=== PATIENT | male | born 1960 | race American Indian/Alaskan Native ===

== ENCOUNTER 2021-11-30 19:44 | Emergency (ER) | payer MEDICAID ==
--- NOTE | 2021-11-30 23:54 | Cat Scan Report ---
CT ABDOMEN AND PELVIS WITHOUT CONTRAST INDICATION / CLINICAL INFORMATION: Patient complains of RIGHT sided flank pain. TECHNIQUE: Axial CT images were obtained through the abdomen and pelvis without IV contrast. All CT scans at this location are performed using CT dose reduction for ALARA by means of automated exposure control. COMPARISON: None available. FINDINGS: LOWER CHEST: Metallic object posterior lateral left rib cage. The lower chest demonstrates no acute f indings. LIVER: No significant abnormality. GALLBLADDER: No significant abnormality. BILE DUCTS: No significant abnormality. SPLEEN: No significant abnormality. PANCREAS: No significant abnormality. ADRENALS: No significant abnormality. RIGHT KIDNEY / URETER: No significant abnormality. LEFT KIDNEY / URETER: No significant abnormality. STOMACH / DUODENUM / SMALL BOWEL: No significant abnormality. COLON: No significant abnormality. APPENDIX: No significant abnormality. PERITONEUM: No free air or free fluid are present within the abdomen or pelvis. LYMPH NODES: No significant adenopathy. AORTA / ARTERIES: No significant abnormality. IVC / VEINS: No significant abnormality. URINARY BLADDER: No significant abnormality. REPRODUCTIVE ORGANS: No significant abnormality. ADDITIONAL ABDOMINAL/PELVIC FINDINGS: None. SKELETAL SYSTEM: No significant abnormality. IMPRESSION: 1. No acute findings. Metallic foreign body posterior lateral left rib cage. Signer Name: Harley James II, MD Signed: 11/30/2021 11:44 PM Workstation Name: [id number]
[2021-12-01 00:19] LABS: Mucus,Urine FEW /HPF
[2021-12-01] MEDS ORDERED: HYDROmorphone 1 MG/1 ML INJ IM ONE (00:20)
[2021-12-01] MEDS ORDERED: KETOROLAC 60 MG/2 ML INJ IM ONE (00:20)
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
[2021-12-01 00:34] LABS: Bilirubin,Urine Negative (Negative); Blood,Urine Small (Negative); Color,Urine Colorless (Yellow)
[2021-12-01 01:55] VITALS: BP 134/63
== END 2021-12-01 02:04 | disposition home or self-care (01) ==
LOC: ED 19:44
DX: R10.9 Unspecified abdominal pain (principal); I10 Essential (primary) hypertension; I21.9 Acute myocardial infarction, unspecified; F03.90 Unspecified dementia, unspecified severity, without behavioral disturbance, psychotic disturbance, mood disturbance, and anxiety; Z98.890 Other specified postprocedural states; F17.200 Nicotine dependence, unspecified, uncomplicated; Z85.46 Personal history of malignant neoplasm of prostate; Z86.73 Personal history of transient ischemic attack (TIA), and cerebral infarction without residual deficits
CPT/HCPCS: 74176; 81001; 96372; 99284; J1170; J1885

== ENCOUNTER 2022-04-05 13:34 | Inpatient (IN) | payer MEDICAID ==
[2022-04-05 15:00] LABS: Basophils # (Auto) 0.1 K/mm3 (0.0-0.1); Basophils % (Auto) 1.6 % (0.0-1.8); Eosinophils # (Auto) 0.1 K/mm3 (0.0-0.4); Eosinophils % (Auto) 1.3 % (0.0-4.3); Hematocrit 46.4 % (35.5-45.6); Hemoglobin 15.6 gm/dl (11.8-15.2); Lymphocytes # (Auto) 1.4 K/mm3 (1.2-5.4); Lymphocytes % (Auto) 23.6 % (13.4-35.0); Mean Corpuscular HGB Conc 34 % (32-34); Mean Corpuscular Volume 87 fl (84-94); Monocytes # (Auto) 0.7 K/mm3 (0.0-0.8); Monocytes % (Auto) 11.4 % (0.0-7.3); Platelet Count 318 K/mm3 (140-440); Red Blood Count 5.33 M/mm3 (3.65-5.03)
[2022-04-05 15:24] LABS: Alanine Aminotransferase 20 units/L (7-56); Albumin 4.2 g/dL (3.9-5); BUN/Creatinine Ratio 15; Blood Urea Nitrogen 20 mg/dL (9-20); Calcium 9.6 mg/dL (8.4-10.2); Hemolysis Index 2
[2022-04-05] MEDS ORDERED: SODIUM CHLORIDE 0.9% 1000 ML 1,000 ML IV ONE (16:06)
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
[2022-04-05 18:31] LABS: Bilirubin,Urine Negative (Negative); Color,Urine Yellow (Yellow)
[2022-04-05 18:32] LABS: Blood,Urine 1+ (Negative)
--- NOTE | 2022-04-05 20:56 | Cat Scan Report ---
CT abdomen pelvis w con INDICATION / CLINICAL INFORMATION: abdominal pain. TECHNIQUE: Axial CT images were obtained through the abdomen and pelvis after IV contrast. All CT sc ans at this location are performed using CT dose reduction for ALARA by means of automated exposure c ontrol. COMPARISON: None available. FINDINGS: Lung bases are clear. The liver is mildly enlarged with suspected steatosis. No focal lesion. Gallbla dder and biliary ducts are unremarkable. Pancreas, spleen, and adrenals demonstrate no significant ab normality. The kidneys enhance symmetrically. No hydronephrosis. Bladder and prostate are unremarkabl e. Stomach is unremarkable. Small bowel and colon demonstrate no evidence of mechanical obstruction or i nflammation. Mild to moderate colonic stool burden. Normal appendix. No free fluid or adenopathy. No free air. Abdominal aorta is normal in caliber. No acute osseous findings. IMPRESSION: No acute findings in the abdomen or pelvis. Signer Name: Mykel High MD Signed: 04/05/2022 8:51 PM Workstation Name: [id number]
[2022-04-05] MEDS ORDERED: MECLIZINE 25 MG TAB PO ONE (22:12)
--- NOTE | 2022-04-05 23:04 | Cat Scan Report ---
CT HEAD WITHOUT CONTRAST INDICATION / CLINICAL INFORMATION: DIZZINESS. TECHNIQUE: CT head was performed without administration of intravenous contrast. All CT scans at this location are performed using CT dose reduction for ALARA by means of automated exposure control. COMPARISON: CT of the abdomen and pelvis with intravenous contrast same date FINDINGS: CEREBRAL HEMISPHERES: Residual contrast present within the vascular system. Generalized atrophy and b ilateral regions of periventricular white matter hypoattenuation compatible with microvascular ischem ia are demonstrated. No midline shift. Basal cisterns patent. HEMORRHAGE: None. CEREBELLUM / BRAINSTEM: No significant abnormality. ORBITS: No significant abnormality. Remote deformity medial wall left orbit. SOFT TISSUES: No significant abnormality. SKULL: No significant abnormality. PARANASAL SINUSES / MASTOID AIR CELLS: Normal as visualized. ADDITIONAL FINDINGS: None. IMPRESSION: 1. Bilateral regions of white matter hypoattenuation compatible with microvascular ischemia. Alternat ively, demyelinating process not entirely excluded. MRI may be useful for further evaluation. 2. Otherwise no evidence of acute intracranial pathology. Signer Name: Harley James II, MD Signed: 04/05/2022 10:59 PM Workstation Name: [id number]
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
[2022-04-06] MEDS ORDERED: ACETAMINOPHEN 325 MG TAB PO PRN (00:52)
[2022-04-06] MEDS ORDERED: MORPHINE 2 MG/1 ML INJ IV PRN (00:52)
[2022-04-06] MEDS ORDERED: DEXTROSE 50% IN WATER (25GM) 50 ML SYRINGE IV PRN (00:52)
[2022-04-06] MEDS ORDERED: PROMETHAZINE 25 MG RECT SUPP PR PRN (00:52)
[2022-04-06] MEDS ORDERED: MORPHINE 4 MG/1 ML INJ IV PRN ×2 (00:52)
[2022-04-06] MEDS ORDERED: ONDANSETRON 4 MG/2 ML INJ IV PRN ×2 (00:52)
[2022-04-06] MEDS ORDERED: METOCLOPRAMIDE 10 MG TAB PO PRN (00:52)
[2022-04-06] MEDS ORDERED: MAGNESIUM HYDROXIDE (MOM) ORAL LIQD UDC PO PRN (00:52)
[2022-04-06 01:23] LABS: INR 0.86 (0.87-1.13)
[2022-04-06 01:24] LABS: Partial Thromboplastin Time 31.6 Sec. (24.2-36.6)
[2022-04-06 01:48] LABS: Thrombin Time 16.9 Sec. (15.1-19.6)
[2022-04-06] MEDS: HEPARIN 5,000 UNIT/1 ML VIAL SUB-Q SCH ×3 (06:01→22:23)
[2022-04-06] MEDS: INSULIN LISPRO 100 UNIT/ML SUB-Q SCH ×4 (08:51→22:23)
[2022-04-06] MEDS: MORPHINE 2 MG/1 ML INJ IV PRN ×2 (08:51→13:00)
[2022-04-06] MEDS: ACETAMINOPHEN 325 MG TAB PO PRN ×2 (08:59→16:52)
[2022-04-06] MEDS: ASPIRIN 325 MG TAB PO SCH (11:46)
--- NOTE | 2022-04-06 11:59 | Progress Note ---
Assessment and Plan Assessment and plan: Patient is 61 years old male with history of hypertension diabetes. Patient stated that he is taking insulin. Patient presented to the ER initially stating that he felt dizzy while he was driving and he checked his blood sugar and it was 451. No focal weakness numbness or tingling sensation. Ataxia R/O esophageal stricture Diabetes mellitus type 2, uncontrolled Hypertension Abdominal pain. 04/06/2022. Patient CT scan of the abdomen pelvis was noted to be negative. Patient did not complain of any further abdominal pain. CT of the brain without contrast was essentially unremarkable. We will follow-up MRI/MRI of brain for further evaluation. Patient has carotid ultrasound and echocardiogram pending. Await barium swallow to r/o esophageal stricture. Consider GI evaluation History Interval history: No new issues overnight Hospitalist Physical - Constitutional Vitals: Temp Pulse Resp BP Pulse Ox 97.5 F L 62 16 143/75 99 04/06/22 11:41 04/06/22 11:41 04/06/22 11:41 04/06/22 11:41 04/06/22 11:41 General appearance: Present: no acute distress, well-nourished - EENT Eyes: Present: PERRL, EOM intact ENT: hearing intact, clear oral mucosa, dentition normal - Neck Neck: Present: supple, normal ROM - Respiratory Respiratory effort: normal Respiratory: bilateral: CTA - Cardiovascular Rhythm: regular Heart Sounds: Present: S1 & S2. Absent: gallop, rub - Extremities Extremities: no ischemia, No edema, Full ROM - Abdominal General gastrointestinal: soft, non-tender, non-distended, normal bowel sounds - Integumentary Integumentary: Present: clear, warm, dry - Neurologic Neurologic: CNII-XII intact, moves all extremities HEART Score - HEART Score Troponin: Troponin T < 0.010 ng/mL (0.00-0.029) 04/06/22 00:30 Results - Labs CBC & Chem 7: 04/05/22 14:35 04/05/22 14:35 Labs: Laboratory Last Values WBC 6.1 K/mm3 (4.5-11.0) 04/05/22 14:35 RBC 5.33 M/mm3 (3.65-5.03) H 04/05/22 14:35 Hgb 15.6 gm/dl (11.8-15.2) H 04/05/22 14:35 Hct 46.4 % (35.5-45.6) H 04/05/22 14:35 MCV 87 fl (84-94) 04/05/22 14:35 MCH 29 pg (28-32) 04/05/22 14:35 MCHC 34 % (32-34) 04/05/22 14:35 RDW 15.0 % (13.2-15.2) 04/05/22 14:35 Plt Count 318 K/mm3 (140-440) 04/05/22 14:35 Lymph % (Auto) 23.6 % (13.4-35.0) 04/05/22 14:35 Starke % (Auto) 11.4 % (0.0-7.3) H 04/05/22 14:35 Eos % (Auto) 1.3 % (0.0-4.3) 04/05/22 14:35 Baso % (Auto) 1.6 % (0.0-1.8) 04/05/22 14:35 Lymph # (Auto) 1.4 K/mm3 (1.2-5.4) 04/05/22 14:35 Starke # (Auto) 0.7 K/mm3 (0.0-0.8) 04/05/22 14:35 Eos # (Auto) 0.1 K/mm3 (0.0-0.4) 04/05/22 14:35 Baso # (Auto) 0.1 K/mm3 (0.0-0.1) 04/05/22 14:35 Seg Neutrophils % 62.1 % (40.0-70.0) 04/05/22 14:35 Seg Neutrophils # 3.8 K/mm3 (1.8-7.7) 04/05/22 14:35 PT 12.6 Sec. (12.2-14.9) 04/06/22 00:30 INR 0.86 (0.87-1.13) L 04/06/22 00:30 APTT 31.6 Sec. (24.2-36.6) 04/06/22 00:30 Thrombin Time 16.9 Sec. (15.1-19.6) 04/06/22 00:30 Sodium 134 mmol/L (137-145) L 04/05/22 14:35 Potassium 4.1 mmol/L (3.6-5.0) 04/05/22 14:35 Chloride 96.9 mmol/L (98-107) L 04/05/22 14:35 Carbon Dioxide 26 mmol/L (22-30) 04/05/22 14:35 Anion Gap 15 mmol/L 04/05/22 14:35 BUN 20 mg/dL (9-20) 04/05/22 14:35 Creatinine 1.3 mg/dL (0.8-1.3) 04/05/22 14:35 Estimated GFR > 60 ml/min 04/05/22 14:35 BUN/Creatinine Ratio 15 % 04/05/22 14:35 Glucose 258 mg/dL (75-100) H 04/05/22 14:35 POC Glucose 166 mg/dL (70-105) H 04/06/22 11:11 Calcium 9.6 mg/dL (8.4-10.2) 04/05/22 14:35 Total Bilirubin 0.60 mg/dL (0.1-1.2) 04/05/22 14:35 AST 24 units/L (5-40) 04/05/22 14:35 ALT 20 units/L (7-56) 04/05/22 14:35 Alkaline Phosphatase 113 units/L (35-129) 04/05/22 14:35 Troponin T < 0.010 ng/mL (0.00-0.029) 04/06/22 00:30 Total Protein 7.8 g/dL (6.3-8.2) 04/05/22 14:35 Albumin 4.2 g/dL (3.9-5) 04/05/22 14:35 Albumin/Globulin Ratio 1.2 % 04/05/22 14:35 Lipase 39 units/L (13-60) 04/05/22 14:35 Urine Color Yellow (Yellow) 04/05/22 17:22 Urine Turbidity Clear (Clear) 04/05/22 17: Urine pH 5.0 (5.0-7.0) 04/05/22 17:22 Ur Specific [place] 1.010 (1.003-1.030) 04/05/22 17:22 Urine Protein 30 mg/dl mg/dL (Negative) 04/05/22 17:22 Urine Glucose (UA) 150 mg/dL (Negative) 04/05/22 17:22 Urine Ketones Negative mg/dL (Negative) 04/05/22 17:22 Urine Blood 1+ (Negative) 04/05/22 17:22 Urine Nitrite Negative (Negative) 04/05/22 17:22 Ur Reducing Substances Not Reportable 04/05/22 17:22 Urine Bilirubin Negative (Negative) 04/05/22 17:22 Urine Ictotest Not Reportable 04/05/22 17:22 Urine Urobilinogen 2.0 mg/dL (<2.0) 04/05/22 17:22 Ur Leukocyte Esterase Negative (Negative) 04/05/22 17:22 Urine WBC (Auto) 1.0 /HPF (0.0-6.0) 04/05/22 17: Urine RBC (Auto) 2.0 /HPF (0.0-6.0) 04/05/22 17:22 U Epithel Cells (Auto) < 1.0 /HPF (0-13.0) 04/05/22 17: Plasma/Serum Alcohol < 0.01 % (0-0.07) 04/05/22 22:44 Jack/IV: Voiding Method Urinal Active Medications - Current Medications Current Medications: Generic Name Dose Route Start Last Admin Trade Name Freq PRN Reason Stop Dose Admin Acetaminophen 650 mg 04/06/22 00:52 04/06/22 08:59 Acetaminophen 325 Mg Tab PO 650 mg Q4H PRN Administration Pain MILD(1-3)/Fever >100.5/HENNING Aspirin 325 mg 04/06/22 10:00 04/06/22 11:46 Aspirin 325 Mg Tab PO 325 mg QDAY STEPH Administration Atorvastatin Calcium 40 mg 04/06/22 22:00 Atorvastatin 40 Mg Tab PO QHS STEPH Bisacodyl 10 mg 04/06/22 00:52 Bisacodyl 10 Mg Rect Supp VT QDAY PRN Constipation Dextrose 50 ml 04/06/22 00:52 Dextrose 50% In Water (25gm) 50 Ml Syringe IV Q30MIN PRN Hypoglycemia Protocol Heparin Sodium (Porcine) 5,000 unit 04/06/22 06:00 04/06/22 06:01 Heparin 5,000 Unit/1 Ml Vial SUB-Q 5,000 unit Q8HR STEPH Administration Insulin Human Lispro 0 unit 04/06/22 07:30 04/06/22 11:46 Insulin Lispro 100 Unit/Ml SUB-Q 2 unit ACHS STEPH Administration Protocol Magnesium Hydroxide 30 ml 04/06/22 00:52 Magnesium Hydroxide (Mom) Oral Liqd Udc PO Q4H PRN Constipation Metoclopramide HCl 10 mg 04/06/22 00:52 Metoclopramide 10 Mg Tab PO Q6H PRN Nausea And Vomiting Morphine Sulfate 2 mg 04/06/22 00:52 Morphine 2 Mg/1 Ml Inj IV Q4H PRN Pain, Moderate (4-6) Morphine Sulfate 4 mg 04/06/22 00:52 Morphine 4 Mg/1 Ml Inj IV Q4H PRN Pain , Severe (7-10) Ondansetron HCl 4 mg 04/06/22 00:52 Ondansetron 4 Mg/2 Ml Inj IV Q8H PRN Nausea And Vomiting Promethazine HCl 25 mg 04/06/22 00:52 Promethazine 25 Mg Rect Supp VT Q6H PRN Nausea And Vomiting Sodium Chloride 10 ml 04/06/22 10:00 04/06/22 11:46 Sodium Chloride 0.9% 10 Ml Flush Syringe IV 10 ml BID STEPH Administration Sodium Chloride 10 ml 04/06/22 00:52 Sodium Chloride 0.9% 10 Ml Flush Syringe IV PRN PRN LINE FLUSH
--- NOTE | 2022-04-06 14:20 | Vascular Lab Report ---
DUPLEX DOPPLER ULTRASOUND CAROTID, BILATERAL INDICATION / CLINICAL INFORMATION: stroke. COMPARISON: None available. FINDINGS: RIGHT CAROTID: Minimal atherosclerotic plaque. - PLAQUE ESTIMATE (%): < 50% - CCA velocity: 95 cm/sec. - ICA peak systolic velocity: 82 cm/sec. - ICA/CCA PSV Ratio: Less than 2. Right Vertebral Artery: Antegrade flow. LEFT CAROTID: Mild atherosclerotic plaque. - PLAQUE ESTIMATE (%): < 50% - CCA velocity: 88 cm/sec. - ICA peak systolic velocity: 89 cm/sec. - ICA/CCA PSV Ratio: Less than 2. Left Vertebral Artery: Antegrade flow. IMPRESSION: 1. Right Internal Carotid Artery: Less than 50% diameter stenosis. 2. Left Internal Carotid Artery: Less than 50% diameter stenosis. Velocity criteria are extrapolated from diameter data as defined by the Society of Radiologists in Ul trasound Consensus Conference, Radiology 2003; 229;340-346. NO STENOSIS (NORMAL) - Plaque = none; ICA PSV < 125 cm/sec; ICA/CCA PSV Ratio < 2.0 <50% STENOSIS - Plaque < 50%; ICA PSV < 125 cm/sec; ICA/CCA PSV Ratio < 2.0 50-69% STENOSIS - Plaque > 50%; ICA PSV = 125-230 cm/sec; ICA/CCA PSV Ratio = 2.0-4.0 >70% BUT <100% STENOSIS - Plaque > 50%; ICA PSV > 230 cm/sec; ICA/CCA PSV Ratio > 4.0 NEAR OCCLUSION - Plaque = visible lumen; ICA PSV = high/low/none; ICA/CCA PSV Ratio = variable TOTAL OCCLUSION - Plaque = no lumen; ICA PSV = none; ICA/CCA PSV Ratio = N/A Scribed by: Torie Pittman RDMS, RVT, RMSKS Scribed: 04/06/2022 12:58 PM I have reviewed the images, agree with this report, and edited this report as needed. Signer Name: Joey Rdz MD Signed: 04/06/2022 2:16 PM Workstation Name: [id number]
[2022-04-06] MEDS: SODIUM CHLORIDE 0.9% 1000 ML 1,000 ML IV SCH ×2 (15:16→22:24)
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
[2022-04-07] MEDS: HEPARIN 5,000 UNIT/1 ML VIAL SUB-Q SCH ×3 (05:09→22:17)
[2022-04-07] MEDS: MORPHINE 2 MG/1 ML INJ IV PRN ×2 (05:09→22:17)
[2022-04-07 06:02] LABS: BUN/Creatinine Ratio 12; Blood Urea Nitrogen 13 mg/dL (9-20); Calcium 9.2 mg/dL (8.4-10.2); Hemolysis Index 4
[2022-04-07 06:17] LABS: Basophils % (Auto) 0.3 % (0.0-1.8); Eosinophils # (Auto) 0.2 K/mm3 (0.0-0.4); Eosinophils % (Auto) 4.3 % (0.0-4.3); Hematocrit 45.9 % (35.5-45.6); Hemoglobin 15.4 gm/dl (11.8-15.2); Lymphocytes # (Auto) 2.1 K/mm3 (1.2-5.4); Lymphocytes % (Auto) 46.9 % (13.4-35.0); Mean Corpuscular HGB Conc 34 % (32-34); Mean Corpuscular Volume 87 fl (84-94); Monocytes # (Auto) 0.5 K/mm3 (0.0-0.8); Monocytes % (Auto) 12.4 % (0.0-7.3); Platelet Count 308 K/mm3 (140-440); Red Blood Count 5.26 M/mm3 (3.65-5.03); Red Cell Distribution Width 15.3 % (13.2-15.2)
[2022-04-07] MEDS: ASPIRIN 325 MG TAB PO SCH (09:19)
[2022-04-07] MEDS: INSULIN LISPRO 100 UNIT/ML SUB-Q SCH ×4 (09:19→22:00)
[2022-04-07] MEDS: ACETAMINOPHEN 325 MG TAB PO PRN (17:08)
[2022-04-08] MEDS: HEPARIN 5,000 UNIT/1 ML VIAL SUB-Q SCH ×2 (07:01→13:21)
--- NOTE | 2022-04-08 07:10 | Progress Note ---
Assessment and Plan Assessment and Plan Assessment: 1CVA 2.Hyperglycemia 3.Hypertension Plan: Admitted and placed on telemetry Will schedule for MRI of the Brain,Carotid doppler and Echo Start on stain and aspirin Neurology follow up appreciated 1. Left Hemipareisis - secondary to ? ischemic . 2. MRI Brain and MRA Brain no contrast -pending 3. Reviewed All Home Medications . 4. Continue Medications - Plavix 75 mg + ASA 81 mg once a day . 5. Needs PT and OT . 6. Out patient neurology follow up Placed on sliding scale insulin for adequate blood glucose monitoring. DVT prophylaxis: SQ Heparin Code Status: Full code. Subjective Date of service: 04/07/22 Principal diagnosis: CVA Interval history: 61 year old male with known histroy of hypertension and Diabetes Mellitus presenting in the ER with complaints of dizziness and elevated blood glucose. He has been compliant with his medications. He also indicates he has had some unsteady gait at some point which has reso lved. He has some occasional chills but no fever. He denies any chest pain, no shortness of breath, no headaches, no blurry vision. Work up in the ER shows elevated blood glucose. CT head reveals areas of hypoattenuation suggesting microvascular ischemia. Urinalysis was unremarkable. Chest X-ray was negative. 04/07/22 Neuro consult appreciated MRI pending Objective - Constitutional Vitals: Vital Signs - 12hr 04/07/22 04/07/22 04/08/22 20:00 21:00 04:40 Temperature 98 F 98.9 F Pulse Rate 64 84 Respiratory 18 18 Rate Blood Pressure 163/101 Blood Pressure 124/70 [Left] O2 Sat by Pulse 98 100 100 Oximetry General appearance: Present: no acute distress, well-nourished - EENT Eyes: PERRL, EOM intact ENT: hearing intact, clear oral mucosa Ears: bilateral: normal - Neck Neck: supple, normal ROM - Respiratory Respiratory effort: normal Respiratory: bilateral: CTA - Breasts Breasts: normal - Cardiovascular Heart rate: 78 Rhythm: regular Heart Sounds: Present: S1 & S2. Absent: gallop, rub Extremities: pulses intact, No edema, normal color, Full ROM - Gastrointestinal General gastrointestinal: Present: soft, non-tender, non-distended, normal bowel sounds - Genitourinary Male genitourinary: normal - Integumentary Integumentary: clear, warm, dry - Musculoskeletal Musculoskeletal: 1, strength equal bilaterally - Neurologic Neurologic: focal deficits (L side weakness) - Psychiatric Psychiatric: memory intact, appropriate mood/affect, intact judgment & insight - Allied health notes Allied health notes reviewed: nursing, case management - Labs CBC & Chem 7: 04/07/22 05:19 04/07/22 05:19 Labs: Abnormal lab results 04/07/22 04/07/22 04/07/22 Range/Units 07:51 11:01 16:18 POC Glucose 164 H 158 H 107 H (70-105) mg/dL 04/07/22 Range/Units 21:55 POC Glucose 182 H (70-105) mg/dL HEART Score - HEART Score Troponin: Troponin T < 0.010 ng/mL (0.00-0.029) 04/06/22 00:30
[2022-04-08] MEDS: ASPIRIN 325 MG TAB PO SCH (09:34)
[2022-04-08] MEDS: INSULIN LISPRO 100 UNIT/ML SUB-Q SCH ×2 (09:34→12:38)
[2022-04-08] MEDS ORDERED: ASPIRIN EC 81 MG TAB PO SCH (10:00)
[2022-04-08] MEDS ORDERED: TAMSULOSIN 0.4 MG CAP PO SCH (10:00)
[2022-04-08] MEDS ORDERED: hydroCHLOROthiazide 25 MG TAB PO SCH (10:00)
[2022-04-08] MEDS ORDERED: CETIRIZINE 10 MG TAB PO SCH (10:00)
[2022-04-08] MEDS ORDERED: LOSARTAN 50 MG TAB PO SCH (10:00)
[2022-04-08] MEDS ORDERED: INSULIN LISPRO 100 UNIT/ML SUB-Q SCH (11:30)
[2022-04-08] MEDS ORDERED: NON-FORMULARY EACH (Insulin Lispro [Humalog 100 Units/Ml Kwikpen] 100 UNIT/ML Insuln.Pen) SQ SCH (11:30)
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
--- NOTE | 2022-04-08 13:55 | Cat Scan Report ---
CTA HEAD WITH CONTRAST HISTORY: Stroke COMPARISON: None. TECHNIQUE: Routine non-contrast CT Head, CTA of the head and post-contrast CT Head are performed. 3-D /MIP reformats postprocessed. All CT scans at this location are performed using CT dose reduction for ALARA by means of automated exposure control CONTRAST: 100 ml of Omnipaque 350 FINDINGS: CTA Head: Intracranial vertebral arteries: No significant abnormality. Basilar artery: No significant abnormality. Posterior cerebral arteries: No significant abnormality. Intracranial internal carotid arteries: No significant abnormality. Anterior cerebral arteries: No significant abnormality. Middle cerebral arteries: No significant abnormality. Dural venous sinuses:Not optimally opacified. No significant abnormality. Additional findings: None. IMPRESSION: 1. No significant abnormality. Signer Name: Tyler Licona MD Signed: 04/08/2022 1:51 PM Workstation Name: [id number]
[2022-04-08 16:21] VITALS: BP 142/74
[2022-04-08] MEDS ORDERED: INSULIN GLARGINE 100 UNITS/ML SUB-Q SCH ×2 (18:00→22:00)
--- NOTE | 2022-04-08 18:50 | Electrocardiograph Report ---
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
[2022-04-08] MEDS ORDERED: NON-FORMULARY EACH (Atorvastatin [Lipitor] 80 MG Tablet) PO SCH (22:00)
[2022-04-08] MEDS ORDERED: NON-FORMULARY EACH (Insulin Glargine,Hum.Rec.Anlog [Lantus Solostar] 100 UNIT/ML Insuln.Pe SQ SCH (22:00)
[2022-04-09] MEDS ORDERED: ASPIRIN EC 81 MG TAB PO SCH (10:00)
== END 2022-04-08 17:14 | disposition home health service (06) | DRG 65 ==
LOC: ED 13:34 → 3A 04-06 00:54
PROVIDERS: ADMIT Internal Medicine Geriatric Medicine; ATTEND Hospitalist
DX: I63.9 Cerebral infarction, unspecified (principal); G81.94 Hemiplegia, unspecified affecting left nondominant side; R27.8 Other lack of coordination; E11.65 Type 2 diabetes mellitus with hyperglycemia; I10 Essential (primary) hypertension; I25.2 Old myocardial infarction; F03.90 Unspecified dementia, unspecified severity, without behavioral disturbance, psychotic disturbance, mood disturbance, and anxiety; F17.200 Nicotine dependence, unspecified, uncomplicated; E78.5 Hyperlipidemia, unspecified; R27.0 Ataxia, unspecified; K22.2 Esophageal obstruction; Z90.49 Acquired absence of other specified parts of digestive tract
CPT/HCPCS: 36415; 70450; 70496; 71045; 74177; 74220; 80048; 80053; 80320; 81001; 82962; 83690; 84484; 85025; 85610; 85670; 85730; 93005; 93306; 93880; G0378; Q9967; C8929; G0480; J1644; J1815; J2270; J7030

== ENCOUNTER 2022-05-19 15:32 | Emergency (ER) | payer MEDICAID ==
--- NOTE | 2022-05-19 16:06 | Event Note ---
ED Screening Note ED Screening Note: severe [place] today and cp hx htn cant tell me meds no focal deficit This initial assessment/diagnostic orders/clinical plan/treatment(s) is/are subject to change based on patients health status, clinical progression and re- assessment by fellow clinical providers in the ED. Further treatment and workup at subsequent clinical providers discretion. Patient/guardian urged not to elope from the ED as their condition may be serious if not clinically assessed and managed. Initial orders include: ro acs htn urg/emegg
[2022-05-19 16:34] LABS: Hematocrit 42.2 % (35.5-45.6); Hemoglobin 14.3 gm/dl (11.8-15.2); Mean Corpuscular HGB Conc 34 % (32-34); Mean Corpuscular Volume 86 fl (84-94); Platelet Count 305 K/mm3 (140-440); Red Cell Distribution Width 14.7 % (13.2-15.2)
[2022-05-19 16:57] LABS: Alanine Aminotransferase 21 units/L (7-56); Albumin 4.1 g/dL (3.9-5); BUN/Creatinine Ratio 14; Blood Urea Nitrogen 14 mg/dL (9-20); Calcium 9.5 mg/dL (8.4-10.2); Hemolysis Index 12
[2022-05-19] MEDS ORDERED: BUTALB/ACETAMINOPHEN/CAFFEINE TAB PO ONE (20:46)
[2022-05-19] MEDS ORDERED: ONDANSETRON 4 MG ODT TAB PO ONE (20:46)
[2022-05-19] MEDS ORDERED: KETOROLAC 30 MG/1 ML INJ IM ONE (20:46)
--- NOTE | 2022-05-19 21:19 | Cat Scan Report ---
CT HEAD WITHOUT CONTRAST INDICATION / CLINICAL INFORMATION: HEADACHE. TECHNIQUE: All CT scans at this location are performed using CT dose reduction for ALARA by means of automated e xposure control. COMPARISON: Head CT 04/05/2022 FINDINGS: HEMORRHAGE: No evidence of intracranial hemorrhage or extra-axial fluid collection. EXTRA-AXIAL SPACES: Cortical sulci, sylvian fissures and basilar cisterns have an unremarkable appear ance. VENTRICULAR SYSTEM: The third and lateral ventricles are of normal size and configuration. CEREBRAL PARENCHYMA: Widespread periventricular, deep white matter and subcortical white matter lucen cies noted. Similar findings were present on previous study. These findings could reflect advanced mi crovascular ischemic change. Risk factors such as hypertension, diabetes was smoking MIDLINE SHIFT OR HERNIATION: There is no mass effect. CEREBELLUM / BRAINSTEM: Brainstem and cerebellum have an unremarkable appearance. MIDLINE STRUCTURES:No abnormalities of the pituitary gland or pineal region are identified. INTRACRANIAL VESSELS:No abnormalities are identified on this noncontrast head CT. ORBITS: visualized portions of the orbits have an unremarkable appearance. SOFT TISSUES of HEAD: Fairly extensive subcutaneous calcifications are observed in the region of the nasion and forehead. Similar findings are present in the skin of the superficial temporal fossa regio ns bilaterally. These are stable findings. CALVARIUM: Evaluation of bone windows reveals no abnormalities. PARANASAL SINUSES / MASTOID AIR CELLS: Visualized portions of the paranasal sinuses are free from inf lammatory mucosal disease. Mastoid air cells are normally pneumatized. IMPRESSION: 1. Fairly extensive white matter lucency in both cerebral hemispheres compatible with advanced microv ascular ischemic change. 2. No acute intracranial abnormality. No significant interval change. Signer Name: Rich Esterlla MD Signed: 05/19/2022 9:14 PM Workstation Name: [id number]
[2022-05-19 21:38] LABS: Color,Urine Colorless (Yellow)
[2022-05-19 21:39] LABS: Bilirubin,Urine Negative (Negative); Blood,Urine Moderate (Negative); Urobilinogen,Urine 0.2 mg/dL (<2.0)
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
[2022-05-20 00:26] VITALS: BP 156/92
--- NOTE | 2022-05-20 18:36 | Electrocardiograph Report ---
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
== END 2022-05-20 00:26 | disposition home or self-care (01) ==
LOC: ED 15:32
DX: G43.009 Migraine without aura, not intractable, without status migrainosus (principal); I10 Essential (primary) hypertension; E11.9 Type 2 diabetes mellitus without complications; F17.200 Nicotine dependence, unspecified, uncomplicated
CPT/HCPCS: 36415; 70450; 80053; 81001; 84484; 85027; 85652; 93005; 96372; 99284; J1885; J3490; Q0162

== ENCOUNTER 2022-05-30 13:50 | Emergency (ER) | payer MEDICAID ==
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
[2022-05-30] MEDS ORDERED: IBUPROFEN 600 MG TAB PO ONE (14:58)
[2022-05-30 15:42] VITALS: BP 141/86
== END 2022-05-30 15:42 | disposition home or self-care (01) ==
LOC: ED 13:50
DX: M54.50 Low back pain, unspecified (principal); V89.2XXA Person injured in unspecified motor-vehicle accident, traffic, initial encounter; Y93.89 Activity, other specified; Y92.89 Other specified places as the place of occurrence of the external cause; Y99.8 Other external cause status; F17.200 Nicotine dependence, unspecified, uncomplicated; I10 Essential (primary) hypertension
CPT/HCPCS: 99282

== ENCOUNTER 2022-05-31 08:49 | Emergency (ER) | payer MEDICAID ==
[2022-05-31] MEDS ORDERED: ASPIRIN 81 MG TAB CHEW PO ONE (09:03)
[2022-05-31] MEDS ORDERED: SODIUM CHLORIDE 0.9% 1000 ML 1,000 ML IV ONE (09:03)
[2022-05-31] MEDS ORDERED: KETOROLAC 30 MG/1 ML INJ IV ONE (09:06)
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
[2022-05-31 10:02] LABS: Basophils % (Auto) 0.9 % (0.0-1.8); Eosinophils # (Auto) 0.2 K/mm3 (0.0-0.4); Eosinophils % (Auto) 4.5 % (0.0-4.3); Hematocrit 42.8 % (35.5-45.6); Hemoglobin 14.3 gm/dl (11.8-15.2); Lymphocytes # (Auto) 1.4 K/mm3 (1.2-5.4); Lymphocytes % (Auto) 29.6 % (13.4-35.0); Mean Corpuscular HGB Conc 34 % (32-34); Mean Corpuscular Volume 87 fl (84-94); Monocytes # (Auto) 0.4 K/mm3 (0.0-0.8); Monocytes % (Auto) 8.5 % (0.0-7.3); Platelet Count 320 K/mm3 (140-440); Red Blood Count 4.93 M/mm3 (3.65-5.03); Red Cell Distribution Width 14.1 % (13.2-15.2)
[2022-05-31 10:10] LABS: INR 0.86 (0.87-1.13)
[2022-05-31 10:11] LABS: Partial Thromboplastin Time 34.9 Sec. (24.2-36.6)
[2022-05-31 11:04] LABS: Alanine Aminotransferase 31 units/L (7-56); Albumin 3.8 g/dL (3.9-5); BUN/Creatinine Ratio 16; Blood Urea Nitrogen 14 mg/dL (9-20); Calcium 9.3 mg/dL (8.4-10.2); Hemolysis Index 21
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
[2022-05-31] MEDS ORDERED: MORPHINE 4 MG/1 ML INJ IV ONE (11:49)
[2022-05-31 12:18] LABS: Amphetamine Screen,Urine Negative; Benzodiazepines Screen,Urine Negative; Cannabinoid Screen,Urine Negative; Cocaine Screen,Urine Negative; Methadone Screen,Urine Negative
[2022-05-31 12:25] LABS: Color,Urine Yellow (Yellow)
[2022-05-31 12:27] LABS: Bilirubin,Urine Negative (Negative); Blood,Urine Trace (Negative); Urobilinogen,Urine < 2.0 mg/dL (<2.0)
[2022-05-31 12:48] LABS: C-Reactive Protein < 0.30 mg/dL (0.00-1.30)
[2022-05-31 12:50] VITALS: BP 156/111
[2022-05-31 12:50] LABS: Opiate Screen,Urine Positive
--- NOTE | 2022-05-31 16:50 | Electrocardiograph Report ---
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
== END 2022-05-31 12:50 | disposition home or self-care (01) ==
LOC: ED 08:49
DX: R42 Dizziness and giddiness (principal); R07.9 Chest pain, unspecified; I10 Essential (primary) hypertension; E11.9 Type 2 diabetes mellitus without complications; Z87.891 Personal history of nicotine dependence; Z79.899 Other long term (current) drug therapy
CPT/HCPCS: 36415; 71045; 80053; 80307; 81001; 82550; 83690; 83880; 84484; 85025; 85610; 85730; 86140; 93005; 96361; 96374; 96375; 99284; J1885; J2270; J7030

== ENCOUNTER 2022-06-02 13:28 | Emergency (ER) | payer MEDICAID ==
[2022-06-02 14:53] VITALS: BP 144/68
[2022-06-02] MEDS ORDERED: MECLIZINE 25 MG TAB PO ONE (17:39)
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
[2022-06-02] MEDS ORDERED: MECLIZINE 25 MG TAB PO NR (19:00)
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
[2022-06-02] MEDS ORDERED: KETOROLAC 30 MG/1 ML INJ IM ONE (20:51)
[2022-06-02] MEDS ORDERED: HYDROcodone/ACETAMINOPHEN 5-325 MG TAB PO ONE (21:00)
[2022-06-02] MEDS ORDERED: ONDANSETRON 4 MG ODT TAB PO ONE (21:00)
== END 2022-06-02 22:00 | disposition home or self-care (01) ==
LOC: ED 13:28
DX: R42 Dizziness and giddiness (principal); R51.9 Headache, unspecified; V89.2XXA Person injured in unspecified motor-vehicle accident, traffic, initial encounter; Y93.89 Activity, other specified; Y92.89 Other specified places as the place of occurrence of the external cause; Y99.8 Other external cause status
CPT/HCPCS: 70450; 72125; 96372; 99283; J1885